=== PATIENT | male | born 1955 | race Caucasian/White ===

== ENCOUNTER → 2021-05-30 12:30 | Outpatient (CLI) | payer SELFPAY ==
--- NOTE | 2021-05-30 12:39 | DI.CT.S_ITS ---
PROCEDURE: CT SOFT TISSUE NECK W CON INDICATIONS: LEFT NECK MASS TECHNIQUE: After the administration of intravenous contrast, 3.0 mm axial sections acquired from the sella to the aortic arch. Additional oblique axial 3.0 mm sections acquired through the pharynx. 3 mm thick coronal and sagittal reformats were generated. For radiation dose reduction, the following was used: automated exposure control. COMPARISON: None. FINDINGS: Image quality: Excellent. Lymph nodes: 1.3 centimeter short axis right level 2B lymph node is noted. 1.2 centimeter short axis right level 5A lymph node is noted. Prominent bilateral level 1, level 2, level 3, level 4 and level 5 neck lymph nodes are noted which do not meet pathologic size criteria. Vessels: Visualized vasculature appears patent. Neck spaces: The oropharynx, nasopharynx, and pharynx demonstrate no mucosal lesions. The vocal cords, false vocal cords, pyriform sinuses, epiglottis, vallecula, and tongue base all appear normal. There is a 4.1 x 4.5 x 6.0 centimeter mass in the left lateral neck soft tissues which corresponds to the clinically palpable lesion. The mass has irregular margins and demonstrates partial central necrosis. Glands: The parotid and submandibular glands appear normal. Thyroid gland is within normal limits Miscellaneous: Visualized brain and orbits appear normal. Lung apices appear clear. Superficial soft tissues appear normal. Bones: No suspicious bony lesions. Spine degenerative disc disease and facet arthropathy. Visualized sinuses and mastoids appear unremarkable. IMPRESSION: 1. Large 4.1 x 4.5 x 6.0 centimeter mass in the left neck with imaging characteristics highly suspicious for malignancy including lymphoma or metastatic disease. Lesion could be biopsied under CT or ultrasound guidance. 2. Right level 2 and level 5 lymphadenopathy which could be related to lymphoma or metastatic disease. 3. Multiple prominent bilateral neck lymph nodes which do not meet pathologic size criteria, however based on the large number prominent nodes findings suspicious for either lymphoma or early metastatic disease. 4. No mucosal-based mass. Dictated by: Keysha Raymond MD, PhD on 05/30/2021 at 14:08 Approved by: Keysha Raymond MD, PhD on 05/30/2021 at 14:17
== END ==
PROVIDERS: Referring Provider Family Medicine; Visit Provider Family Medicine
DX: R22.1 Localized swelling, mass and lump, neck (principal); R59.0 Localized enlarged lymph nodes
CPT/HCPCS: 70491

== ENCOUNTER → 2021-07-09 09:27 | Outpatient (CLI) | payer OTHER, MEDICAID, SELFPAY ==
[2021-07-09 10:39] LABS: COVID19 -Nasal RAPID Negative (Negative)
== END ==
PROVIDERS: PCP Family Medicine; Visit Provider Surgery
DX: Z01.812 Encounter for preprocedural laboratory examination (principal); Z20.822 Contact with and (suspected) exposure to COVID-19
CPT/HCPCS: 87635; C9803

== ENCOUNTER 2021-07-10 08:51 | Day surgery (SDC) | payer OTHER, MEDICAID, SELFPAY ==
[2021-07-10] VITALS (7 sets, daily range): BP systolic 107–135; BP diastolic 52–67; PULSE 50–65; RESP 11–18; TEMP 36.2–36.7; O2SAT 94–98; BMI 30.7
--- NOTE | 2021-07-10 | DI.RAD.S_ITS ---
PROCEDURE: XR CHEST 1V INDICATIONS: Postoperative port catheter placement TECHNIQUE: One view of the chest was acquired. COMPARISON: None. FINDINGS: Central venous port catheter in the right chest wall with distal tip terminating in the upper portion of the SVC. IMPRESSION: Right chest wall CBC port catheter terminating in the upper SVC. Dictated by: Raleigh Chaudhry M.D. on 07/10/2021 at 11:44 Approved by: Raleigh Chaudhry M.D. on 07/10/2021 at 11:44
--- NOTE | 2021-07-10 08:56 | PM.HP.1 ---
History of Present Illness History of Present Illness Date Patient Seen: 07/10/21 Time Patient Seen: 08:56 Chief complaint: SDC Narrative: 65-year-old man referred by Port-A-Cath placement. Patient has squamous cell carcinoma of the left neck. Has a 5 cm mass left supraclavicular mass and bilateral neck lymph nodes no evidence of distant metastasis. He is awaiting referral to a head and neck surgical oncologist via [facility], [place] n is to proceed with neoadjuvant chemotherapy. Patient History Medical History Former consumption of alcohol History of needle biopsy (06/18/21) Surgical History History of wisdom tooth extraction Family & Social History Family History Mother Hypertension Tobacco & Substance use: Smoking Status Former smoker alcohol intake former Meds Home Medications and Allergies Home Medications Medication Instructions Recorded Confirmed Type Ca 600 mg-D3 20 mcg-mag oxide 50 1 tab PO DAILY 06/14/21 07/10/21 History qn-Kf-azbagi-manganese-boron tablet (Calcium 600-D3 Plus (mag-zinc)) ascorbic acid (vitamin C) 1,000 mg 3,000 cap PO DAILY 06/14/21 07/10/21 History capsule,extended release cholecalciferol (vitamin D3) 25 25 mcg PO DAILY 06/14/21 07/10/21 History mcg (1,000 unit) tablet (Vitamin D3) multivitamin 1 tab PO DAILY 06/14/21 07/10/21 History Allergies Allergy/AdvReac Type Severity Reaction Status Date / Time No Known Drug Allergies Allergy Verified 06/14/21 15:57 Exam Narrative Exam Narrative: GENERAL: Adult male in no apparent distress HEENT: No scleral icterus Neck-8 cm left supraclavicular mass, minimal right neck lyphadenopathy. CV: Regular rate, no peripheral edema LUNGS: No increased work of breathing. Patient speaks in full sentences without oxygen support. 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 Technical details of the operation were discussed with the patient. Operative risks including bleeding, infection, pneumothorax, mechanical device failure were discussed. His questions have been answered and he is in agreement with this plan. Time Spent With Patient Critical Care time: I spent a total of [] minutes of critical care time on this patient's care today; this time is exclusive of procedural time.
[2021-07-10] MEDS: LACTATED RINGERS 1,000 ML 200 ML IV ×2 (09:28→11:03)
[2021-07-10] MEDS: CEFAZOLIN 2 GM/20 ML SYRINGE IV (10:08)
[2021-07-10] MEDS: HEPARIN 5,000 UNIT, SODIUM CHLORIDE 0.9% 50 ML IV (10:30)
[2021-07-10] MEDS: BUPIVACAINE 0.25% (PF) VIAL 30 ML INJ (10:31)
--- NOTE | 2021-07-10 10:32 | SUR.OPER ---
Supine on padded OR bed, head on gel donut, arms padded and tucked at sides, legs uncrossed, safety belt at thigh, tape over blanket over lower legs . rolled towel placed vertically between shoulder blades, gel pad under heels, pillow under knees.
--- NOTE | 2021-07-10 11:12 | PM.OP.1 ---
Operative Date/Time/Diagnoses Date of procedure: 07/10/21 Time of procedure: 11:13 Pre-op diagnosis: Squamous cell carcinoma neck Post-op diagnosis: same Procedure & Clinicians Procedure: Right Port-A-Cath placement Same procedure as scheduled: Yes Indications: Squamous cell carcinoma neck requiring Port-A-Cath placement Surgeon: Jadiel Weiss Click Yes if Unassisted: Yes Anesthesia Type: General Operative Notes Findings: Tip of catheter within the SVC. Chest x-ray panic Specimen(s): none sent Estimated Blood Loss (mL): 10 Procedure in detail: Patient was brought to the operating room placed supine on table. Bilateral lower extremity compressive devices were applied. General anesthesia was induced and he was intubated with an LMA. He was then prepped and draped in usual sterile fashion. Time-out was performed ensure the correct patient procedure necessary equipment within the operating room. He received 2 g of Ancef prior to incision. The right subclavian was accessed with a finer needle. The guidewire was then threaded through the needle and its placement was confirmed with fluoroscopy. The dilator was then placed over the guidewire. The catheter was then inserted through the sheath. Placement was again confirmed with fluoroscopy. The port was not attached to the catheter however it did not flush or draw well. The catheter was then removed and attempts were made to reaccess the right subclavian vein however this was not successful. Under ultrasound guidance the right internal jugular vein was accessed under direct visualization. The guidewire was then threaded through the needle. Its placement was then confirmed using fluoroscopy. The dilator was then placed over the guidewire. The catheter was then inserted through the sheath. Placement was again confirmed with fluoroscopy. The tunneler device was used to move the catheter from the neck to the chest pocket. The port was attached after it was primed with heparined saline. The port was tested to ensure that it flushed easily and had good blood return. The port was then secured to the underlying fascia using interupted 0 Prolene suture. Hemostasis was achieved. The wound was irrigated with sterile saline. The subcutaneous tissues were reapproximated with the 3 0 Vicryl and then skin closed with 4-0 Monocryl. The skin was sealed with Dermabond. Patient tolerated procedure well. The sponge and instrument count at the end operation was correct. Patient emerged from general anesthesia was extubated and taken to the postoperative care unit in stable condition placement Complications: none Post-operative Condition: stable Disposition: same day surgery
--- NOTE | 2021-07-10 11:20 | SUR.PHASEI ---
Patient to pacu s/p portacath placement to right chest wall; vss; no distress noted; dressing to right chest wall with scant amount of drainage noted; bandaid to right lower neck clean, dry and intact. Denies pain or nausea.
[2021-07-10] MEDS: OXYCODONE/ACETAMINOPHEN 5/325 TABLET 1 TAB PO (11:36)
[2021-07-10] MEDS: ONDANSETRON 4 MG/2 ML INJ IV (11:36)
== END 2021-07-10 12:15 | disposition home or self-care (01) ==
PROVIDERS: PCP Family Medicine; Referring Provider Surgery; Visit Provider Surgery
PROC: (CPT 36561; principal; 2021-07-10 10:00)
DX: C44.42 Squamous cell carcinoma of skin of scalp and neck (principal)
CPT/HCPCS: 36561; 71045; 76000; C1788; J0690; J1100; J1644; J2250; J2405; J2704; J3010

== ENCOUNTER → 2022-01-10 10:46 | Outpatient (CLI) | payer OTHER, MEDICAID, SELFPAY ==
--- NOTE | 2022-01-10 10:48 | DI.CT.S_ITS ---
PROCEDURE: CT SOFT TISSUE NECK W CON INDICATIONS: head and neck SCC TECHNIQUE: After the administration of intravenous contrast, 3.0 mm axial sections acquired from the sella to the aortic arch. Additional oblique axial 3.0 mm sections acquired through the pharynx. 3 mm thick coronal and sagittal reformats were generated. For radiation dose reduction, the following was used: automated exposure control. COMPARISON: [facility], CT, CT SOFT TISSUE NECK WITH CONTRAST, 09/20/2021, 13:17. [place], [place], [place] PET CT FUSION SKULL 2 THIGH, 06/27/2021, 8:25. [facility], CT, CT SOFT TISSUE NECK W CON, 05/30/2021, 13:06. FINDINGS: Image quality: Excellent. Lymph nodes: No enlarged lymph nodes seen throughout the neck. Vessels: Visualized vasculature appears patent. Neck spaces: The oropharynx, nasopharynx, and pharynx demonstrate no mucosal lesions. The vocal cords, false vocal cords, pyriform sinuses, epiglottis, vallecula, and tongue base all appear normal. Large left level 3-4 tata mass which extends into the left superior mediastinum is decreased in size compared to September 20, 2021. Mass measures approximately 4.8 by 5.9 by 4.1 centimeters in the current study. Glands: The parotid and submandibular glands appear normal. Thyroid gland is within normal limits. Miscellaneous: Visualized brain and orbits appear normal. Lung apices appear clear. Superficial soft tissues appear normal. Right chest wall Port-A-Cath. Bones: No suspicious bony lesions. Spine degenerative disc disease and facet arthropathy. Mild mucosal thickening in the floor of the right maxillary sinus. The mastoids appear unremarkable. IMPRESSION: 1. Large left anterior-inferior tata neck mass is decreased in size compared to September 20, 2021 compatible with response to therapy. 2.Bilateral level 2 and right level 5 pathologic sized lymph nodes and numerous prominent bilateral neck lymph nodes are decreased in size compared to September 20, 2021. No lymphadenopathy based on size criteria identified in the current study. Dictated by: Keysha Raymond MD, PhD on 01/10/2022 at 10:34 Approved by: Keysha Raymond MD, PhD on 01/10/2022 at 10:44
== END ==
PROVIDERS: PCP Physician Assistant; Referring Provider Internal Medicine Hematology & Oncology; Visit Provider Internal Medicine Hematology & Oncology
DX: C80.1 Malignant (primary) neoplasm, unspecified (principal); C79.89 Secondary malignant neoplasm of other specified sites; R59.0 Localized enlarged lymph nodes
CPT/HCPCS: 70491; Q9967

== ENCOUNTER → 2022-07-08 11:54 | Outpatient (CLI) | payer OTHER, MEDICAID, SELFPAY ==
--- NOTE | 2022-07-08 11:54 | DI.CT.S_ITS ---
PROCEDURE: CT SOFT TISSUE NECK W CON INDICATIONS: metastatic head and neck squamous cell cancer TECHNIQUE: After the administration of intravenous contrast, 3.0 mm axial sections acquired from the sella to the aortic arch. Additional oblique axial 3.0 mm sections acquired through the pharynx. 3 mm thick coronal and sagittal reformats were generated. For radiation dose reduction, the following was used: automated exposure control. COMPARISON: [facility], [place], [place] CT FUSION SKULL 2 THIGH, 03/20/2022, 8:13. [facility], CT, CT SOFT TISSUE NECK W CON, 01/10/2022, 10:54. FINDINGS: Image quality: Excellent. Lymph nodes: Apparent necrotic lymph nodes can be seen on the left inferiorly and laterally within the supraclavicular region, measuring 2.7 x 2.2 cm and 2 x 2 cm. These are overall improved compared to the 01/10/2022 examination. Poorly in prominent lymph nodes are seen elsewhere within the neck, which are overall also mildly improved compared to the prior. Vessels: Visualized vasculature appears patent. Neck spaces: Generalized fatty stranding can be seen within the subcutaneous tissues of the neck. There is a low-density, poorly enhancing soft tissue nodular focus seen within the left supraglottic region that measures 2.5 x 1.8 cm in greatest axial dimension, with mild mass effect upon the epiglottis. Glands: The parotid and submandibular glands appear normal. Thyroid gland demonstrates no significant abnormality. Miscellaneous: Visualized brain and orbits appear normal. Lung apices appear clear. Superficial soft tissues appear normal. There is partial visualization of a right-sided chest port. Bones: No suspicious bony lesions. Visualized sinuses and mastoids appear unremarkable. IMPRESSION: Abnormal soft tissue fullness seen within the left supraglottic region, with mass effect upon the epiglottis. Please correlate with direct visualization via laryngoscopy. Continued improvement of the abnormal lymph nodes seen within the left supraclavicular region. Borderline prominent lymph nodes are seen elsewhere within the neck, which are also mildly improved compared to the prior. Fatty stranding can be seen within the subcutaneous tissues of the neck, which is consistent prior radiation treatment. Additional findings: Right-sided chest port Dictated by: Adriel Orellana M.D. on 07/08/2022 at 13:35 Approved by: Adriel Orellana M.D. on 07/08/2022 at 13:42
--- NOTE | 2022-07-08 11:54 | DI.CT.S_ITS ---
PROCEDURE: CT CHEST W CON INDICATIONS: metastatic head and neck squamous cell cancer TECHNIQUE: After the administration of intravenous contrast, 5 mm thick sections acquired from the pulmonary apices to the posterior costophrenic angles. 1 mm axial lung, 5 mm thick coronal and sagittal reformats and 7 mm axial MIP were acquired. For radiation dose reduction, the following was used: automated exposure control, adjustment of mA and/or kV according to patient size. COMPARISON: [facility], [place], [place] FUSION SKULL 2 THIGH, 03/20/2022, 8:13. [facility], CT, CT SOFT TISSUE NECK W CON, 07/08/2022, 12:06. FINDINGS: Image quality: Excellent. Lungs and pleura: Significant interval increase in size of a posterior inferior right upper lobe pulmonary nodule (previously described as right lower lobe), previously measuring 8 mm, and now measuring 14 mm. Reference previous image 138/3 of the PET-CT and current image 174/3. Interval development of an ill-defined process more superiorly and anteriorly in the right upper lobe, which includes ground-glass opacity and ill-defined reticular nodularity, which appears to be infectious or inflammatory in nature. Additionally, in the lingular portion of the left upper lobe, there is a developing somewhat ovoid nodular density, which was present on the previous PET/CT, and is now significantly larger. It measures approximately 9 x 15 mm. On the previous study, it measured approximately 8 x 8 mm. It may also represent an area of progressive metastatic disease. No pleural effusions or pneumothorax. Central and peripheral airways are patent and normal in caliber. Mediastinum: Heart size is normal. No pericardial effusion. No mediastinal or hilar adenopathy by size criteria. Thoracic aorta and central pulmonary arteries are normal in size. Esophagus is normal in caliber. No hiatal hernia. Bones and chest wall: No Severe osteoporosis with innumerable mild thoracic compressions. There is significant supraclavicular adenopathy and cervical adenopathy on the left. Please refer to a separate report from today's neck CT. Thyroid gland is grossly unremarkable . Abdomen: Visualized upper abdominal solid organs appear normal. Upper abdominal bowel loops are normal in caliber. IMPRESSION: 1. Cervical metastatic disease and supraclavicular metastatic disease is described in a separate report. 2. Definite interval progression of metastatic disease in the chest. A posterior inferior right lower lobe pulmonary nodule has significantly increased in size, as has a ovoid density in the lingula of the left upper lobe. 3. There is also a process in the right upper lobe which has an appearance suggesting infectious or inflammatory etiology. 4. There are numerous thoracic compressions. Consider thoracic spine MRI with without contrast for further evaluation. Dictated by: Carlos Serrano M.D. on 07/08/2022 at 18:23 Approved by: Carlos Serrano M.D. on 07/08/2022 at 18:39
== END ==
PROVIDERS: PCP Physician Assistant; Referring Provider Internal Medicine Hematology & Oncology; Visit Provider Internal Medicine Hematology & Oncology
DX: C79.89 Secondary malignant neoplasm of other specified sites (principal); C78.00 Secondary malignant neoplasm of unspecified lung; C80.1 Malignant (primary) neoplasm, unspecified; R59.0 Localized enlarged lymph nodes
CPT/HCPCS: 70491; 71260; Q9967

== ENCOUNTER → 2022-07-25 15:05 | Outpatient (CLI) | payer OTHER, MEDICAID, SELFPAY | PROVIDERS: PCP Physician Assistant; Visit Provider Nurse Practitioner Family | DX: R22.1 Localized swelling, mass and lump, neck (principal) | CPT/HCPCS: 87070; 87075; 87077; 87147; 87186; 87205 ==

== ENCOUNTER → 2022-09-18 14:30 | Outpatient (CLI) | payer MEDICARE, MEDICAID, SELFPAY | PROVIDERS: PCP Physician Assistant; Referring Provider Internal Medicine Hematology & Oncology; Visit Provider Surgery | DX: L59.8 Other specified disorders of the skin and subcutaneous tissue related to radiation (principal); S11.90XA Unspecified open wound of unspecified part of neck, initial encounter; T81.83XA Persistent postprocedural fistula, initial encounter; C76.0 Malignant neoplasm of head, face and neck | CPT/HCPCS: 99203; 99213 ==

== ENCOUNTER → 2022-09-25 11:28 | Outpatient (CLI) | payer MEDICARE, MEDICAID, SELFPAY | PROVIDERS: PCP Physician Assistant; Referring Provider Internal Medicine Hematology & Oncology; Visit Provider Nurse Practitioner Family | DX: L59.8 Other specified disorders of the skin and subcutaneous tissue related to radiation (principal); S11.80XA Unspecified open wound of other specified part of neck, initial encounter | CPT/HCPCS: 99212 ==

== ENCOUNTER → 2022-10-11 10:06 | Outpatient (CLI) | payer MEDICARE, MEDICAID, SELFPAY ==
--- NOTE | 2022-10-11 10:08 | DI.CT.S_ITS ---
PROCEDURE: CT SOFT TISSUE NECK W CON INDICATIONS: head and neck cancer [facility] lung mets TECHNIQUE: After the administration of intravenous contrast, 3.0 mm axial sections acquired from the sella to the aortic arch. Additional oblique axial 3.0 mm sections acquired through the pharynx. 3 mm thick coronal and sagittal reformats were generated. For radiation dose reduction, the following was used: automated exposure control. COMPARISON: [place], [place] CT FUSION SKULL 2 THIGH, 03/20/2022, 8:13. [facility], CT, CT SOFT TISSUE NECK W CON, 01/10/2022, 10:54. [facility], CT, CT SOFT TISSUE NECK WITH CONTRAST, 09/20/2021, 13:17. [place] CT FUSION SKULL 2 THIGH, 06/27/2021, 8:25. [facility], CT, CT SOFT TISSUE NECK W CON, 05/30/2021, 13:06. [facility], CT, CT SOFT TISSUE NECK W CON, 07/08/2022, 12:06. FINDINGS: Image quality: Artifact is present within the exam limiting areas of fine detail evaluation. Lymph nodes: Within the left lateral lower neck extending to the supraclavicular region, there is previously identified heterogeneously enhancing lymph nodes appearing necrotic. On current exam there is an overall focus of diffuse thickening measuring approximately 6.5 x 5.2 cm on series 2, image 43. There is a central area of air as well as surrounding low attenuation measures approximately 1.4 x 2.2 cm. . The overall confluent size is similar to prior exam, however noting a more central cavitary appearance. Vessels: Visualized vasculature appears patent. Neck spaces: Generalized fat stranding in the subcutaneous tissues of the neck remains present. The previously noted low-density nodular soft tissue focus in the left supraglottic region remains present although decreased in size, now measuring approximately 1.5 x 1.1 cm compared to 2.5 x 1.8 cm. There is reduced although residual mass effect on the epiglottis. Glands: The parotid and submandibular glands appear normal. Thyroid gland is unremarkable. Miscellaneous: Visualized brain and orbits appear normal. Lung apices appear clear. Superficial soft tissues appear normal. Bones: No suspicious bony lesions. Visualized sinuses and mastoids appear unremarkable. IMPRESSION: Persistent although decreased size left supraglottic mass. Similar confluent soft tissue thickening within the left inferior neck. However, there is a more focal central focus of air and fluid. This may represent recent surgical intervention. Other etiology such as progressive necrosis should be considered. Less likely given lack of visualization, fistulous track should be considered if clinically appropriate symptoms. Dictated by: Tamika Toribio M.D. on 10/11/2022 at 14:38 Approved by: Tamika Toribio M.D. on 10/11/2022 at 14:50
--- NOTE | 2022-10-11 10:08 | DI.CT.S_ITS ---
PROCEDURE: CT CHEST W CON INDICATIONS: head and neck cancer [facility] lung mets TECHNIQUE: After the administration of intravenous contrast, 5 mm thick sections acquired from the pulmonary apices to the posterior costophrenic angles. 1 mm axial lung, 5 mm thick coronal and sagittal reformats and 7 mm axial MIP were acquired. For radiation dose reduction, the following was used: automated exposure control, adjustment of mA and/or kV according to patient size. COMPARISON: [facility], CT, CT CHEST W CON, 07/08/2022, 12:06. FINDINGS: Image quality: Excellent. Lungs and pleura: When compared with the study dated July 08, 2022, a right upper lobe and a lingular pulmonary nodule have decreased in size. The right upper lobe nodule now measures 0.8 cm in diameter and previously measured 1.3 cm in diameter. The lingular nodule now measures 0.5 x 1.0 cm and previously measured 0.8 x 1.5 cm in the axial plane. Ground-glass radiopacities within the anterior aspect of the right upper lobe are unchanged from the prior study in suggest postinflammatory residua. New consolidative radiopacities are present within the posterior aspect of the left lower lobe. No pleural effusion or pneumothorax. Mediastinum: Heart size is normal. No pericardial effusion. No mediastinal or hilar adenopathy by size criteria. Thoracic aorta and central pulmonary arteries are normal in size. Esophagus is normal in caliber. No hiatal hernia. Bones and chest wall: No suspicious bony lesions. No vertebral body compression fractures. No axillary or supraclavicular adenopathy by size criteria. Thyroid gland is unremarkable . Abdomen: Visualized upper abdominal solid organs appear normal. Upper abdominal bowel loops are normal in caliber. IMPRESSION: 1. Decreased size of bilateral pulmonary nodules when compared with the study dated July 08, 2022 suggesting response to therapy. 2. New consolidative radiopacities at the left lung base. The chronicity and appearance of this finding suggest aspiration or infection; however underlying neoplasm or pulmonary metastasis cannot be excluded. Short interval follow-up to resolution is recommended. Dictated by: Bonny Aparicio M.D. on 10/11/2022 at 12:08 Approved by: Bonny Aparicio M.D. on 10/11/2022 at 12:13
== END ==
PROVIDERS: PCP Physician Assistant; Referring Provider Internal Medicine Hematology & Oncology; Visit Provider Internal Medicine Hematology & Oncology
DX: C79.89 Secondary malignant neoplasm of other specified sites (principal); C80.1 Malignant (primary) neoplasm, unspecified; C78.00 Secondary malignant neoplasm of unspecified lung
CPT/HCPCS: 70491; 71260; Q9967

== ENCOUNTER 2022-10-24 10:13 | Emergency (ER) | payer MEDICARE, MEDICAID, SELFPAY ==
[2022-10-24 10:15] VITALS: BP 117/63; PULSE 88; RESP 17; TEMP 37.1; O2SAT 97
--- NOTE | 2022-10-24 10:20 | ED.ALCOHOL ---
HPI - Alcohol <MIKE Bolton - Last Filed: 10/24/22 10:28> General Chief Complaint: Toxicology Problem Stated Complaint: drinking alcohol x6days; feeling poorly Time Seen by Provider: 10/24/22 10:20 Source: patient Mode of arrival: Wheelchair History of Present Illness HPI narrative: This is a 67-year-old gentleman with history cancer with a wound on his left neck from a biopsy, alcoholism, denies history of alcohol withdrawal seizures but heavily over the last 6 days, his last drink was a few hours ago, it was. He was recommended by to come in for evaluation. He endorses having chills but denies fever, denies upper respiratory infection. Amount of alcohol consumed: States his last drink was vodka, has over the last 6 days. Needs his wound on his left neck evaluated and the dressing changed Related Data Home Medications Medication Instructions Recorded Confirmed Ca 600 mg-D3 20 mcg-mag oxide 50 1 tab PO DAILY 06/14/21 09/12/22 ci-Nf-nxlele-manganese-boron tablet (Calcium 600-D3 Plus (mag-zinc)) ascorbic acid (vitamin C) 1,000 mg 3,000 cap PO DAILY 06/14/21 09/12/22 capsule,extended release cholecalciferol (vitamin D3) 25 25 mcg PO DAILY 06/14/21 09/12/22 mcg (1,000 unit) tablet (Vitamin D3) multivitamin 1 tab PO DAILY 06/14/21 09/12/22 Previous Rx's Medication Instructions Recorded acetaminophen 325 mg capsule 650 mg PO QID PRN pain #60 caps 07/10/21 (Tylenol) oxycodone 10 mg tablet 10 mg PO Q4H PRN Pain (Scale Score 08/06/22 1-3) #30 tabs morphine 15 mg tablet,extended 15 mg PO Q12H cancer pain #60 tabs 09/30/22 release oxycodone 10 mg tablet 10 mg PO Q4H PRN cancer related 10/21/22 pain. #120 tabs chlordiazepoxide HCl 25 mg capsule See Rx Instructions .Route 10/24/22 .COMPLEX PRN alcohol withdrawal #32 caps Allergies Allergy/AdvReac Type Severity Reaction Status Date / Time No Known Drug Allergies Allergy Verified 10/24/22 10:15 <Patel Colon DO - Last Filed: 10/25/22 07:10> History of Present Illness HPI narrative: This is a 67-year-old gentleman with history cancer with a wound on his left neck from a biopsy, alcoholism, denies history of alcohol withdrawal seizures but heavily over the last 6 days, his last drink was a few hours ago, it was. He was recommended by to come in for evaluation. He endorses having chills but denies fever, denies upper respiratory infection. He denies headaches, blurry vision, dizziness, weakness or lightheadedness. He does feel a bit anxious but denies any auditory or visual hallucinations. He is no chest pain or shortness of breath and denies any abdominal pain <Patel Colon DO - Last Filed: 10/25/22 07:10> Review of Systems Narrative: GENERAL: See HPI HEENT: Denies sinus pain, ear pain, sore throat, difficulty swallowing, dizziness. RESPIRATORY: Denies dyspnea, cough, wheezing, hemoptysis, sputum. CARDIOVASCULAR: Denies chest pain, palpitations, orthopnea, edema, GASTROINTESTINAL: Denies nausea, vomiting, abdominal pain, diarrhea, constipation, melena. : Denies dysuria, frequency, incontinence, hematuria, urinary retention. MUSCULOSKELETAL: denies weakness, joint pain, or bony pain SKIN: Denies rash, skin lesions, or other NEUROLOGIC: Denies weakness, headache, numbness, change in speech, confusion, seizures, incoordination. PSYCHIATRIC: No concerning psychosocial issues. 12 point review of systems is negative except for those stated above Patient History <MIKE Bolton - Last Filed: 10/24/22 10:28> Medical History Former consumption of alcohol History of needle biopsy (06/18/21) Surgical History History of wisdom tooth extraction Family History Mother Hypertension Social History Smoking Status: Former smoker alcohol intake: former substance use type: does not use Smoking Status: Former smoker Substance Use Type: does not use Exam <MIKE Bolton Last Filed: 10/24/22 10:28> Initial Vital Signs Initial Vital Signs: Vital Signs Temperature 98.7 F 10/24/22 10:15 Pulse Rate 88 10/24/22 10:15 Respiratory Rate 17 10/24/22 10:15 Blood Pressure 117/63 10/24/22 10:15 Pulse Oximetry 97 10/24/22 10:15 Oxygen Delivery Method Room Air 10/24/22 10:15 <Patel Colon DO - Last Filed: 10/25/22 07:10> Narrative Exam Narrative: GENERAL: 67] year old patient appears stated age. Well-developed patient, in mild distress. HEAD: Atraumatic. Normocephalic. EYES: Pupils equal round and reactive. Extraocular motions intact. No scleral icterus. No injection or drainage. ENT: Nose without bleeding, purulent drainage. Throat without erythema, tonsillar hypertrophy or exudate. Airway patent. NECK: Trachea midline. Non tender CARDIOVASCULAR: Regular rate and rhythm without murmurs, gallops, or rubs. RESPIRATORY: Clear to auscultation. Breath sounds equal bilaterally. No wheezes, rales, or rhonchi. GASTROINTESTINAL: Abdomen soft, non-tender, nondistended. EXTREMITIES: No edema or joint tenderness. BACK: Nontender without deformity or crepitance. No flank tenderness. NEURO: AOx3. 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 No rash or erythema of visible areas Initial Vital Signs Initial Vital Signs: Vital Signs Temperature 98.7 F 10/24/22 10:15 Pulse Rate 88 10/24/22 10:15 Respiratory Rate 17 10/24/22 10:15 Blood Pressure 117/63 10/24/22 10:15 Pulse Oximetry 97 10/24/22 10:15 Oxygen Delivery Method Room Air 10/24/22 10:15 Course <MIKE Bolton - Last Filed: 10/24/22 10:28> Orders Ordered: Discontinued Medications Sodium Chloride (Normal Saline 0.9%) 1,000 mls @ 1,000 mls/hr IV BOLUS ONE Stop: 10/24/22 11:21 Last Infusion: 10/24/22 11:40 Dose: 0 mls/hr Documented By: Admin: 10/24/22 10:48 Dose: 1,000 mls/hr Documented By: AT Thiamine HCl 100 mg/ Sodium (Chloride) 101 mls @ 404 mls/hr IV NOW ONE Stop: 10/24/22 10:23 Last Infusion: 10/24/22 11:26 Dose: 0 mls/hr Documented By: Admin: 10/24/22 10:49 Dose: 404 mls/hr Documented By: AT Ondansetron HCl (Ondansetron 4 Mg/2 Ml Inj) 4 mg IV NOW ONE Stop: 10/24/22 10:23 Last Admin: 10/24/22 10:48 Dose: 4 mg Documented By: AT Vital Signs Vital signs: Vital Signs - 8 hr 10/24/22 10:15 10/24/22 10:26 10/24/22 10:30 Temperature 98.7 F Pulse Rate 88 79 Respiratory Rate 17 17 Blood Pressure 117/63 126/65 Pulse Oximetry 97 98 Oxygen Delivery Method Room Air 10/24/22 10:30 10/24/22 11:00 10/24/22 11:00 Temperature Pulse Rate 76 72 Respiratory Rate 15 19 Blood Pressure 128/64 Pulse Oximetry 99 Oxygen Delivery Method Room Air <Patel Colon, - Last Filed: 10/25/22 07:10> Course Course Narrative: [facility] for Alcohol Withdrawal from [employer] on 10/24/2022 All calculations should be rechecked by clinician prior to use RESULT SUMMARY: 2 points Patients with scores <= typically do not require medication for withdrawal. INPUTS: Nausea/vomiting ?> 0 = No nausea and no vomiting Tremor ?> 0 = No tremor Paroxysmal sweats ?> 0 = No sweat visible Anxiety ?> 1 = Mildly anxious Agitation ?> 1 = Somewhat more activity than normal activty Tactile disturbances ?> 0 = None Auditory disturbances ?> 0 = Not present Visual disturbances ?> 0 = Not present Headache/fullness in head ?> 0 = Not Present Orientation/clouding of sensorium ?> 0 = Oriented, can do serial additions Orders Ordered: Discontinued Medications Sodium Chloride (Normal Saline 0.9%) 1,000 mls @ 1,000 mls/hr IV BOLUS ONE Stop: 10/24/22 11:21 Last Infusion: 10/24/22 11:40 Dose: 0 mls/hr Documented By: Admin: 10/24/22 10:48 Dose: 1,000 mls/hr Documented By: AT Thiamine HCl 100 mg/ Sodium (Chloride) 101 mls @ 404 mls/hr IV NOW ONE Stop: 10/24/22 10:23 Last Infusion: 10/24/22 11:26 Dose: 0 mls/hr Documented By: Admin: 10/24/22 10:49 Dose: 404 mls/hr Documented By: AT Ondansetron HCl (Ondansetron 4 Mg/2 Ml Inj) 4 mg IV NOW ONE Stop: 10/24/22 10:23 Last Admin: 10/24/22 10:48 Dose: 4 mg Documented By: AT Vital Signs Vital signs: Vital Signs - 8 hr 10/24/22 10:15 10/24/22 10:26 10/24/22 10:30 Temperature 98.7 F Pulse Rate 88 79 Respiratory Rate 17 17 Blood Pressure 117/63 126/65 Pulse Oximetry 97 98 Oxygen Delivery Method Room Air 10/24/22 10:30 10/24/22 11:00 10/24/22 11:00 Temperature Pulse Rate 76 72 Respiratory Rate 15 19 Blood Pressure 128/64 Pulse Oximetry 99 Oxygen Delivery Method Room Air MDM - Alcohol <Padma Yusuf, WH[employer] BUFFER - Last Filed: 10/24/22 10:28> Lab Data 10/24/22 10:25 10/24/22 10:25 Labs: Lab Results 10/24/22 10/24/22 10/24/22 Range/Units 10:25 10:25 10:25 WBC 8.1 (4.5-11.0) X10^3/uL RBC 4.84 (4.5-5.9) X10^6/uL Hgb 13.4 L (13.5-17.5) g/dL Hct 39.4 L (41-53) % MCV 81.4 (80-100) fL MCH 27.7 (26-34) PG MCHC 34.0 (30-36) % RDW 14.5 (11.6-14.8) % Plt Count 360 (150-400) X10^3/uL Neut % (Auto) 82.5 H (50-75) % Lymph % (Auto) 7.9 L (25-40) % Stafford % (Auto) 7.0 (3-14) % Eos % (Auto) 0.5 L (2-4) % Baso % (Auto) 2.1 H (0-2) % Neut # (Auto) 6700 (8973-3201) /uL Lymph # (Auto) 600 L (4638-2150) /uL Stafford # (Auto) 600 (0-900) /uL Eos # (Auto) 0 (0-450) /uL Baso # (Auto) 200 H (0-100) /uL Sodium 132 L (137-145) mmol/L Potassium 4.1 (3.4-5.1) mmol/L Chloride 93 L (98-107) mmol/L Carbon Dioxide 22 (22-32) mmol/L BUN 12 (9-20) mg/dL Creatinine 0.45 L (0.66-1.25) mg/dL Estimated GFR > 60 (>60) mL/min BUN/Creatinine Ratio 26.7 H (6-22) Glucose 62 L (80-110) mg/dL Calcium 8.8 (8.4-10.2) mg/dL Magnesium 2.0 (1.6-2.3) mg/dL Total Bilirubin 0.5 (0.2-1.3) mg/dL AST 70 H (17-59) IU/L ALT 42 (<50) IU/L Alkaline Phosphatase 108 (38-126) U/L Ammonia < 9 L (9-30) umol/L Total Protein 8.1 (6.3-8.2) g/dL Albumin 4.4 (3.5-5.0) g/dL Globulin 3.7 (1.7-4.1) g/dL Albumin/Globulin Ratio 1.2 (1.0-2.8) Lipase 46 (23-300) U/L Procalcitonin 0.06 (<0.5) ng/mL <Patel Colon, DO - Last Filed: 10/25/22 07:10> Lab Data Labs: Lab Results 10/24/22 10/24/22 10/24/22 Range/Units 10:25 10:25 10:25 WBC 8.1 (4.5-11.0) X10^3/uL RBC 4.84 (4.5-5.9) X10^6/uL Hgb 13.4 L (13.5-17.5) g/dL Hct 39.4 L (41-53) % MCV 81.4 (80-100) fL MCH 27.7 (26-34) PG MCHC 34.0 (30-36) % RDW 14.5 (11.6-14.8) % Plt Count 360 (150-400) X10^3/uL Neut % (Auto) 82.5 H (50-75) % Lymph % (Auto) 7.9 L (25-40) % Stafford % (Auto) 7.0 (3-14) % Eos % (Auto) 0.5 L (2-4) % Baso % (Auto) 2.1 H (0-2) % Neut # (Auto) 6700 (6690-3051) /uL Lymph # (Auto) 600 L (3572-4466) /uL Stafford # (Auto) 600 (0-900) /uL Eos # (Auto) 0 (0-450) /uL Baso # (Auto) 200 H (0-100) /uL Sodium 132 L (137-145) mmol/L Potassium 4.1 (3.4-5.1) mmol/L Chloride 93 L (98-107) mmol/L Carbon Dioxide 22 (22-32) mmol/L BUN 12 (9-20) mg/dL Creatinine 0.45 L (0.66-1.25) mg/dL Estimated GFR > 60 (>60) mL/min BUN/Creatinine Ratio 26.7 H (6-22) Glucose 62 L (80-110) mg/dL Calcium 8.8 (8.4-10.2) mg/dL Magnesium 2.0 (1.6-2.3) mg/dL Total Bilirubin 0.5 (0.2-1.3) mg/dL AST 70 H (17-59) IU/L ALT 42 (<50) IU/L Alkaline Phosphatase 108 (38-126) U/L Ammonia < 9 L (9-30) umol/L Total Protein 8.1 (6.3-8.2) g/dL Albumin 4.4 (3.5-5.0) g/dL Globulin 3.7 (1.7-4.1) g/dL Albumin/Globulin Ratio 1.2 (1.0-2.8) Lipase 46 (23-300) U/L Procalcitonin 0.06 (<0.5) ng/mL MDM Narrative Medical decision making narrative: Alcohol intoxication versus withdrawal versus other year old patient presents with concerns about possible alcohol withdrawal Multiple etiologies for patient's symptoms considered including, but not limited to: [Alcohol withdrawal versus intoxication versus other] Prior Charts reviewed in our EMR Primary Historian: patient Labs reviewed and interpreted by myself: Imaging reviewed: CXR without acute change Patient's symptoms improved over duration of stay with above-stated therapies. He has an extremely low CIWA of 2, is unlikely to develop withdrawal type symptoms with such a short course but we did discuss the potential and will send a prescription to his pharmacy of choice nonetheless. Findings and discharge diagnosis discussed with patient/family followed by verbalization of understanding Return precautions discussed with patient/family whom verbalize understanding of diagnosis and plan Discharge Plan Departure Patient Disposition: Home Clinical Impression: Alcohol abuse Instructions: DI for Alcohol Use Disorder Activity Restrictions/Additional Instructions: *You have been diagnosed with [alcohol abuse] *What to do: *Please continue to take your regular medications as directed. [ x] New medication prescriptions sent to your pharmacy: [[facility] ] [ ] New medication written as a paper prescription [ ] No new medications given *Please follow up with your primary care provider in 2-3 days, call for an appointment. Let them know you were seen in the Emergency Department and that we ask that you be seen in follow up. We will electronically transmit a record of today's note if your PCP is in our system *If you do not have a primary care provider please contact the [facility] Resource line at [phone]. They will ask some questions about your medical history and help get you set up with a doctor in the community. *Return to Emergency Department if you should have any new, worsening or concerning symptoms, such as [fever greater than 101 F, shaking chills, worsening pain, persistent vomiting or other bothersome symptoms] Prescriptions: New chlordiazepoxide HCl 25 mg capsule See Rx Instructions .ROUTE .COMPLEX PRN (Reason: alcohol withdrawal) Qty: 32 0RF Rx Instructions: Day 1: 50mg POq4 Day 2: 50mg POq6 Day 3: 50mg POq8 Day 4: 50mg POq12 Day 5: 50mg POqhs #32 No Action acetaminophen [Tylenol] 325 mg capsule 650 mg PO QID PRN (Reason: pain) Qty: 60 0RF multivitamin Tablet 1 tab PO DAILY ascorbic acid (vitamin C) 1,000 mg Capsule, Extended Release 3,000 cap PO DAILY cholecalciferol (vitamin D3) [Vitamin D3] 25 mcg (1,000 unit) Tablet 25 mcg PO DAILY Ca-D3-mag pt-kiza-yrf-curt-bor [Calcium 600-D3 Plus (mag-zinc)] 600 mg calcium- 20 mcg-50 mg Tablet 1 tab PO DAILY oxycodone 10 mg Tablet 10 mg PO Q4H PRN (Reason: Pain (Scale Score 1-3)) Qty: 30 0RF morphine 15 mg Tablet Extended Release 15 mg PO Q12H Qty: 60 0RF oxycodone 10 mg Tablet 10 mg PO Q4H PRN (Reason: cancer related pain.) Qty: 120 0RF Referrals: Lisbet Medina PA-C [Primary Care Provider] - Stand Alone Forms: Patient Portal/API
--- NOTE | 2022-10-24 10:22 | DI.RAD.S_ITS ---
PROCEDURE: XR CHEST 1V INDICATIONS: alcohol withdrawal, feeling TECHNIQUE: One view of the chest was acquired. COMPARISON: [facility], CT, CT CHEST W CON, 07/08/2022, 12:06. is likely secondary [facility], CT, CT CHEST W . CON, 10/11/2022, 10:40[facility], CR, XR CHEST 1V, 07/10/2021, 11:18. FINDINGS: Surgical changes and devices: There is a Port-A-Cath on the right with the tip projecting to the area of SVC. Lungs and pleura: Left hemidiaphragm elevation. Left basilar infiltrate or atelectasis. No pleural effusions or pneumothorax. Mediastinum: Prominent right hilum secondary to rotation. Heart size is normal. Bones and chest wall: No suspicious bony lesions. Overlying soft tissues appear unremarkable. IMPRESSION: 1. Left hemidiaphragm elevation with left basilar infiltrate or atelectasis. Dictated by: Amanda Moses M.D. on 10/24/2022 at 11:07 Approved by: Amanda Moses M.D. on 10/24/2022 at 11:09
[2022-10-24 10:26] VITALS: PULSE 79; RESP 17; O2SAT 98
[2022-10-24 10:30] VITALS: BP 126/65; PULSE 76; RESP 15; O2SAT 99
[2022-10-24] MEDS: SODIUM CHLORIDE 0.9% 1,000 ML 1000 ML IV (10:48)
[2022-10-24] MEDS: ONDANSETRON 4 MG/2 ML INJ IV (10:48)
[2022-10-24] MEDS: THIAMINE 100 MG in SODIUM CHLORIDE 0.9% 100 ML 404 MG IV (10:49)
[2022-10-24 10:50] LABS: Add Manual Diff / Slide Review NO; Basophils Absolute Auto 200 /uL (0-100); Basophils Percent Auto 2.1 % (0-2); Eosinophils Absolute Auto 0 /uL (0-450); Eosinophils Percent Auto 0.5 % (2-4); Hematocrit 39.4 % (41-53); Hemoglobin 13.4 g/dL (13.5-17.5); Lymphocytes Absolute Auto 600 /uL (1100-4500); Lymphocytes Percent Auto 7.9 % (25-40); Mean Corpuscular Hemoglobin 27.7 PG (26-34); Mean Corpuscular Volume 81.4 fL (80-100); Monocytes Absolute Auto 600 /uL (0-900); Neutrophils Absolute Auto 6700 /uL (1500-7000); Neutrophils Percent Auto 82.5 % (50-75); Platelet Count 360 X10^3/uL (150-400); Red Blood Cell Count 4.84 X10^6/uL (4.5-5.9); Red Cell Distribution Width 14.5 % (11.6-14.8); White Blood Cell Count 8.1 X10^3/uL (4.5-11.0)
[2022-10-24 11:00] VITALS: BP 128/64; PULSE 72; RESP 19
[2022-10-24 11:00] LABS: Alanine Aminotransferase 42 IU/L (<50); Albumin 4.4 g/dL (3.5-5.0); Albumin Globulin Ratio 1.2 (1.0-2.8); Alkaline Phosphatase 108 U/L (38-126); Aspartate Aminotransferase 70 IU/L (17-59); BUN Creatinine Ratio 26.7 (6-22); Bilirubin Total 0.5 mg/dL (0.2-1.3); Blood Urea Nitrogen 12 mg/dL (9-20); Calcium 8.8 mg/dL (8.4-10.2); Carbon Dioxide 22 mmol/L (22-32); Chloride 93 mmol/L (98-107); Estimated Glomerular Filt Rate > 60 mL/min (>60); Globulin 3.7 g/dL (1.7-4.1); Glucose 62 mg/dL (80-110); HEMOLYSIS < 15 (0-50); Lipase 46 U/L (23-300); Potassium 4.1 mmol/L (3.4-5.1); Sodium 132 mmol/L (137-145); Total Protein 8.1 g/dL (6.3-8.2)
[2022-10-24 11:01] LABS: Ammonia (NH3) < 9 umol/L (9-30)
[2022-10-24 11:17] LABS: Procalcitonin 0.06 ng/mL (<0.5)
[2022-10-24 11:30] VITALS: BP 135/65; PULSE 69; RESP 14; O2SAT 97
--- NOTE | 2022-10-24 12:05 | PC.NURSE ---
Patient has chronic oozing left neck wound, pt has not cleaned wound in past 6 days, states he usually tends to it daily. Dressing removed, wound cleaned with chloraprep, gauze and tegaderm applied, educated pt on irritated skin and encouraged to continue his wound care regimen.
== END 2022-10-24 12:05 | disposition home or self-care (01) ==
PROVIDERS: Nurse Practitioner Critical Care Medicine; Emergency Provider Emergency Medicine; PCP Physician Assistant
DX: F10.10 Alcohol abuse, uncomplicated (principal)
CPT/HCPCS: 36415; 71045; 80053; 82140; 83690; 83735; 84145; 85025; 93005; 93010; 96365; 96375; 99284; J2405

== ENCOUNTER → 2022-11-06 09:21 | Outpatient (CLI) | payer MEDICARE, MEDICAID, SELFPAY | PROVIDERS: PCP Physician Assistant; Referring Provider Internal Medicine Hematology & Oncology; Visit Provider Surgery | DX: L59.8 Other specified disorders of the skin and subcutaneous tissue related to radiation (principal); S11.80XA Unspecified open wound of other specified part of neck, initial encounter; C76.0 Malignant neoplasm of head, face and neck | CPT/HCPCS: 99212; 99213 ==

== ENCOUNTER → 2022-12-31 11:08 | Outpatient (CLI) | payer MEDICARE, MEDICAID, SELFPAY | PROVIDERS: PCP Physician Assistant; Referring Provider Internal Medicine Hematology & Oncology; Visit Provider Surgery | DX: L59.8 Other specified disorders of the skin and subcutaneous tissue related to radiation (principal); S11.80XA Unspecified open wound of other specified part of neck, initial encounter; T81.83XA Persistent postprocedural fistula, initial encounter; C76.0 Malignant neoplasm of head, face and neck | CPT/HCPCS: 99213 ==

== ENCOUNTER 2024-07-08 18:00 | Emergency (ER) | payer MEDICARE, MEDICAID, SELFPAY ==
[2024-07-08] VITALS (21 sets, daily range): BP systolic 126–173; BP diastolic 65–84; PULSE 72–101; RESP 13–32; TEMP 36.4; O2SAT 86–97; BMI 22.9
--- NOTE | 2024-07-08 18:13 | DI.RAD.S_ITS ---
PROCEDURE: XR CHEST 1V INDICATIONS: weakness TECHNIQUE: One view of the chest was acquired. COMPARISON: [facility], [place], PET NECK TO MID THIGH, 03/25/2024, 9:28. [facility], CR, XR CHEST 1V, 10/24/2022, 10:32. [facility], CR, XR CHEST 1V, 07/10/2021, 11:18. FINDINGS: Patient is rotated to the right. Surgical changes and devices: Right-sided port with the catheter tip at the middle 3rd of the SVC. Lungs and pleura: Left lower lung consolidation. No pleural effusions or pneumothorax. Mediastinum: Mediastinal contours appear normal. Heart size is normal. Bones and chest wall: No suspicious bony lesions. Overlying soft tissues appear unremarkable. IMPRESSION: Left lower lung consolidation. Suspect pneumonia. Recommend follow-up to resolution. Dictated by: Alvaro Moore M.D. on 07/08/2024 at 18:47 Approved by: Alvaro Moore M.D. on 07/08/2024 at 18:48
--- NOTE | 2024-07-08 18:13 | EKG_ITS ---
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
[2024-07-08 19:28] LABS: Creatine Kinase 90 U/L (55-170)
[2024-07-08 19:29] LABS: Lactate (Lactic Acid) 1.4 mmol/L (0.7-2.1)
[2024-07-08 19:40] LABS: Troponin I < 0.012 ng/mL (0.01-0.034)
--- NOTE | 2024-07-08 19:40 | ED_ITS ---
HPI - Weakness General Chief complaint: Weakness Stated complaint: Increased Weakness Time Seen by Provider: 07/08/24 18:12 Source: patient and EMS Mode of arrival: EMS History of Present Illness HPI Narrative: 68-year-old male past medical history of cancer to his neck with wound currently undergoing chemotherapy comes into the ED for multiple complaints, states he has been having increased weakness shortness of breath dizziness nausea vomiting multiple falls over the past few weeks, states that he is currently on an antibiotic for his neck, patient arrived with EMS stating pulse ox was 89% on room air upon arrival patient mid 90s room air patient does has a right upper chest port. Patient states that he is also unable to stand and walk even significant weakness this is what caused him to fall but denies any head strike, states that he is unable to hit his head given the fact that he can not move his neck given the large ulcer/wound to his left neck. States that he is currently on ciprofloxacin started a few days ago. Has been compliant with this. Related Data Home Medications Medication Instructions Recorded Confirmed ascorbic acid (vitamin C) 1,000 mg 3,000 cap PO DAILY 06/14/21 01/02/23 capsule,extended release calcium 600 mg-D3 20 mcg-magnesium 1 tab PO DAILY 06/14/21 01/02/23 50 zm-Cj-fnmkxn-michael-boron tablet (Calcium 600-D3 Plus (mag-zinc)) cholecalciferol (vitamin D3) 25 25 mcg PO DAILY 06/14/21 01/02/23 mcg (1,000 unit) tablet (Vitamin D3) multivitamin 1 tab PO DAILY 06/14/21 01/02/23 Tylenol PM See Rx Instructions .Route .COMPLEX 11/21/22 01/02/23 Previous Rx's Medication Instructions Recorded acetaminophen 325 mg capsule 650 mg (2 x 325 mg) PO QID PRN 07/10/21 (Tylenol) pain #60 caps oxycodone 10 mg tablet 10 mg PO Q4H PRN cancer related 12/19/22 pain. #90 tabs Allergies Allergy/AdvReac Type Severity Reaction Status Date / Time No Known Drug Allergies Allergy Verified 10/24/22 10:15 Review of Systems Review of Systems Narrative: General: Increased generalized weakness, Denies fever, chills, weight loss HEENT: Denies headache, eye drainage, eye irritation, head trauma, sore throat, voice change Cardiovascular: Denies any chest pain, palpitations, shortness of breath, tachycardia Respiratory: Denies any shortness of breath, cough, wheeze, stridor GI/: Denies any abdominal pain, nausea, vomiting, diarrhea, bright red blood per rectum, melanotic stools, urinary frequency, urinary retention, dysuria, hematuria MSK: Denies any joint pain, muscle pains, swelling Skin: Denies any rashes, lesions, discoloration Neuro: Denies any headache, lightheadedness, dizziness, fainting, weakness Psych: Denies SI/HI Patient History Medical History Former consumption of alcohol History of needle biopsy (06/18/21) Surgical History History of wisdom tooth extraction Family History Mother Hypertension Social History Smoking Status: Former smoker alcohol intake: former substance use type: does not use Smoking Status: Former smoker alcohol intake frequency: 3 or more drinks per day Exam Narrative Exam Narrative: General: Cooperative, comfortable, well-developed, not in acute distress HEENT: Normocephalic, atraumatic, PERRLA, normal sclera, eyelids normal, Neck: Patient with 5 x 5 ulcerative lesion noted to the left lateral anterior neck due to known invasive carcinoma purulent discharge noted but no crepitus Chest: Normal to inspection, negative crepitus, no overlying erythema ecchymosis Respiratory: Normal respiratory effort, not in acute respiratory distress, clear to auscultation bilaterally negative cough, wheeze, tachypnea, rhonchi, rales Cardiology: Regular rate rhythm negative gallop, murmur, rubs GI/: Normal to inspection, soft, nonrigid, no tenderness to palpation, exam deferred MSK: Full range of active range of motion of all 4 extremities, atraumatic Skin: No rashes lesions noted Neuro: Patient is able to move all 4 extremities spontaneously however slowed/weekend, patient unable to stand ambulate or sit for due to severe weakness Alert awake oriented x3, moves all 4 extremities spontaneously, cranial nerves intact, able to answer all questions appropriately follows commands appropriately Psych: Cooperative, negative suicidal or homicidal ideations Initial Vital Signs Initial Vital Signs: Vital Signs Pulse Rate 82 07/08/24 18:06 Pulse Oximetry 95 07/08/24 18:06 Course Orders Ordered: ED Orders 07/08/24 18:13 CXR [XR chest 1V] Stat EKG-12 Lead Stat 07/08/24 18:45 Blood Culture Stat Lactate (Lactic Acid) Stat Troponin & CK Cardiac Panel Stat 07/08/24 19:30 Covid-19 + FLU A/B + RSV - PCR Stat Wound Culture and Gram Stain Stat 07/08/24 19:45 CMP [Comprehensive Metabolic Panel] Stat Lipase Stat MAG [Magnesium] Stat NT-proBNP (BNP-Adult 18+) Stat Osmolality, Serum Stat PT [Prothrombin Time INR] Stat PTT Partial Thromboplastin Juan Alberto Stat 07/08/24 20:07 CT head/brain wo con Stat 07/08/24 20:08 CT soft tissue neck w con Stat 07/08/24 20:47 BMP [Basic Metabolic Panel] Stat 07/08/24 22:15 Osmolality Urine Stat Sodium Urine Random Stat Urine Microscopic Stat 07/08/24 22:25 Basic Metabolic Panel Stat 07/09/24 00:48 Basic Metabolic Panel Stat Sodium Chloride (Hypertonic Saline 3%) 100 mls @ 20 mls/hr IV NOW ONE Stop: 07/09/24 03:26 Last Admin: 07/08/24 22:40 Dose: 20 mls/hr Documented By: MARY KAY Discontinued Medications Sodium Chloride (Hypertonic Saline 3%) 50 mls @ 600 mls/hr IV NOW ONE Stop: 07/08/24 20:42 Last Infusion: 07/08/24 21:20 Dose: Infused Documented By: MARY KAY Admin: 07/08/24 20:47 Dose: 600 mls/hr Documented By: MARY KAY Sodium Chloride (Hypertonic Saline 3%) 100 mls @ 30 mls/hr IV NOW ONE Stop: 07/08/24 23:57 Last Infusion: 07/08/24 22:40 Dose: Infused Documented By: MARY KAY Admin: 07/08/24 20:48 Dose: 30 mls/hr Documented By: MARY KAY Vancomycin HCl/Dextrose (Vancomycin) 2,000 mg in 400 mls @ 200 mls/hr IV NOW ONE Stop: 07/09/24 00:18 Last Admin: 07/08/24 23:52 Dose: 200 mls/hr Documented By: MARY KAY Piperacillin Sod/Tazobactam (Sod 4.5 gm/ Sodium Chloride) 100 mls @ 200 mls/hr IV NOW ONE Stop: 07/08/24 22:19 Last Infusion: 07/08/24 23:53 Dose: Infused Documented By: MARY KAY Admin: 07/08/24 23:23 Dose: 200 mls/hr Documented By: MARY KAY Morphine Sulfate (Morphine 4 Mg/Ml Inj) 4 mg IV NOW ONE Stop: 07/08/24 23:42 Last Admin: 07/08/24 23:49 Dose: 4 mg Documented By: MARY KAY Vital Signs Vital signs: Vital Signs - 8 hr 07/08/24 18:06 07/08/24 18:07 07/08/24 18:07 Temperature Pulse Rate 82 78 Respiratory Rate Blood Pressure 173/73 H Pulse Oximetry 95 95 Oxygen Delivery Method 07/08/24 18:14 07/08/24 18:30 07/08/24 18:33 Temperature 97.6 F Pulse Rate 75 75 Respiratory Rate 22 22 Blood Pressure 173/73 H 171/74 H Pulse Oximetry 95 96 Oxygen Delivery Method Room Air 07/08/24 18:33 07/08/24 19:00 07/08/24 19:30 Temperature Pulse Rate 75 75 74 Respiratory Rate 19 17 22 Blood Pressure Pulse Oximetry 97 96 97 Oxygen Delivery Method 07/08/24 20:00 07/08/24 20:44 07/08/24 21:00 Temperature Pulse Rate 75 78 74 Respiratory Rate 21 16 Blood Pressure Pulse Oximetry 97 86 L 97 Oxygen Delivery Method 07/08/24 21:30 07/08/24 21:51 07/08/24 21:51 Temperature Pulse Rate 72 74 Respiratory Rate 13 19 Blood Pressure 126/65 Pulse Oximetry 97 97 Oxygen Delivery Method 07/08/24 22:00 07/08/24 22:01 07/08/24 22:01 Temperature Pulse Rate 78 79 Respiratory Rate 21 23 Blood Pressure 139/84 Pulse Oximetry 97 97 Oxygen Delivery Method 07/08/24 22:15 07/08/24 22:15 07/08/24 22:30 Temperature Pulse Rate 79 Respiratory Rate 22 Blood Pressure 145/75 H 149/75 H Pulse Oximetry Oxygen Delivery Method 07/08/24 22:30 07/08/24 22:45 07/08/24 22:45 Temperature Pulse Rate 78 101 H Respiratory Rate 23 32 H Blood Pressure 134/71 Pulse Oximetry 96 Oxygen Delivery Method Room Air 07/08/24 23:00 07/08/24 23:00 07/08/24 23:15 Temperature Pulse Rate 77 Respiratory Rate 21 Blood Pressure 149/74 H 154/73 H Pulse Oximetry 97 Oxygen Delivery Method Room Air 07/08/24 23:15 07/08/24 23:30 07/08/24 23:30 Temperature Pulse Rate 76 76 Respiratory Rate 21 18 Blood Pressure 150/70 H Pulse Oximetry 97 97 Oxygen Delivery Method Room Air Room Air 07/08/24 23:45 07/08/24 23:45 07/09/24 00:00 Temperature Pulse Rate 75 Respiratory Rate 18 Blood Pressure 145/69 H 141/68 H Pulse Oximetry 97 Oxygen Delivery Method 07/09/24 00:00 07/09/24 00:15 07/09/24 00:15 Temperature Pulse Rate 76 72 Respiratory Rate 17 14 Blood Pressure 132/60 Pulse Oximetry 97 97 Oxygen Delivery Method 07/09/24 00:30 07/09/24 00:30 07/09/24 00:45 Temperature Pulse Rate 70 Respiratory Rate 13 Blood Pressure 132/68 119/61 Pulse Oximetry 97 Oxygen Delivery Method 07/09/24 00:45 07/09/24 01:00 07/09/24 01:00 Temperature Pulse Rate 69 69 Respiratory Rate 14 14 Blood Pressure 115/59 L Pulse Oximetry 97 97 Oxygen Delivery Method MDM - Weakness Differential Diagnosis Differential diagnosis: Likely other (ACS, pneumonia, electrolyte abnormality) Lab Data 07/09/24 00:48 Labs: Lab Results 07/08/24 07/08/24 07/08/24 Range/Units 18:45 19:30 19:45 PT 15.5 H (9.4-12.5) SECONDS INR 1.4 H (0.9-1.3) APTT 32 (25.1-36.5) SECONDS Sodium 99 L* (137-145) mmol/L Potassium 3.8 (3.4-5.1) mmol/L Chloride 68 L* (98-107) mmol/L Carbon Dioxide 21 L (22-32) mmol/L BUN 11 (9-20) mg/dL Creatinine 0.40 L (0.66-1.25) mg/dL Estimated GFR > 60 (>60) mL/min BUN/Creatinine Ratio 27.5 H (6-22) Glucose 91 (80-110) mg/dL Lactate 1.4 (0.7-2.1) mmol/L Calcium 8.5 (8.4-10.2) mg/dL Magnesium 1.4 L (1.6-2.3) mg/dL Total Bilirubin 0.8 (0.2-1.3) mg/dL AST 32 (17-59) IU/L ALT 26 (<50) IU/L Alkaline Phosphatase 81 (38-126) U/L Total Creatine Kinase 90 (55-170) U/L Troponin I < 0.012 (0.01-0.034) ng/mL NT-Pro-B Natriuret Pep 3300 H (<125) pg/mL Total Protein 6.5 (6.3-8.2) g/dL Albumin 3.4 L (3.5-5.0) g/dL Globulin 3.1 (1.7-4.1) g/dL Albumin/Globulin Ratio 1.1 (1.0-2.8) Lipase 23 (23-300) U/L Urine RBC (0-5/HPF) Urine WBC (0-5/HPF) Ur Squamous Epith Cells (0-5/HPF) Urine Bacteria (None) Ur Culture Indicated? Vol Urine Centrifuged Ur Random Sodium (30-90) mmol/L SARS-CoV-2 (PCR) Negative (Negative) Influenza A (RT-PCR) Flu a negative (NEGATIVE) Influenza B (RT-PCR) Flu b negative (NEGATIVE) RSV (PCR) Negative (Negative) 07/08/24 07/08/24 07/08/24 Range/Units 20:47 22:15 22:25 PT (9.4-12.5) SECONDS INR (0.9-1.3) APTT (25.1-36.5) SECONDS Sodium 98 L* 101 L* (137-145) mmol/L Potassium 3.7 3.7 (3.4-5.1) mmol/L Chloride 67 L* 69 L* (98-107) mmol/L Carbon Dioxide 23 23 (22-32) mmol/L BUN 11 11 (9-20) mg/dL Creatinine 0.37 L 0.33 L (0.66-1.25) mg/dL Estimated GFR > 60 > 60 (>60) mL/min BUN/Creatinine Ratio 29.7 H 33.3 H (6-22) Glucose 88 79 L (80-110) mg/dL Lactate (0.7-2.1) mmol/L Calcium 8.1 L 8.4 (8.4-10.2) mg/dL Magnesium (1.6-2.3) mg/dL Total Bilirubin (0.2-1.3) mg/dL AST (17-59) IU/L ALT (<50) IU/L Alkaline Phosphatase (38-126) U/L Total Creatine Kinase (55-170) U/L Troponin I (0.01-0.034) ng/mL NT-Pro-B Natriuret Pep (<125) pg/mL Total Protein (6.3-8.2) g/dL Albumin (3.5-5.0) g/dL Globulin (1.7-4.1) g/dL Albumin/Globulin Ratio (1.0-2.8) Lipase (23-300) U/L Urine RBC None seen (0-5/HPF) Urine WBC None seen (0-5/HPF) Ur Squamous Epith Cells 0-1 /hpf (0-5/HPF) Urine Bacteria None seen (None) Ur Culture Indicated? Cult not indicated Vol Urine Centrifuged 10ml (spun) Ur Random Sodium 6 L (30-90) mmol/L SARS-CoV-2 (PCR) (Negative) Influenza A (RT-PCR) (NEGATIVE) Influenza B (RT-PCR) (NEGATIVE) RSV (PCR) (Negative) 07/09/24 Range/Units 00:48 PT (9.4-12.5) SECONDS INR (0.9-1.3) APTT (25.1-36.5) SECONDS Sodium 100 L* (137-145) mmol/L Potassium 3.5 (3.4-5.1) mmol/L Chloride 71 L* (98-107) mmol/L Carbon Dioxide 20 L (22-32) mmol/L BUN 11 (9-20) mg/dL Creatinine 0.35 L (0.66-1.25) mg/dL Estimated GFR > 60 (>60) mL/min BUN/Creatinine Ratio 31.4 H (6-22) Glucose 74 L (80-110) mg/dL Lactate (0.7-2.1) mmol/L Calcium 8.1 L (8.4-10.2) mg/dL Magnesium (1.6-2.3) mg/dL Total Bilirubin (0.2-1.3) mg/dL AST (17-59) IU/L ALT (<50) IU/L Alkaline Phosphatase (38-126) U/L Total Creatine Kinase (55-170) U/L Troponin I (0.01-0.034) ng/mL NT-Pro-B Natriuret Pep (<125) pg/mL Total Protein (6.3-8.2) g/dL Albumin (3.5-5.0) g/dL Globulin (1.7-4.1) g/dL Albumin/Globulin Ratio (1.0-2.8) Lipase (23-300) U/L Urine RBC (0-5/HPF) Urine WBC (0-5/HPF) Ur Squamous Epith Cells (0-5/HPF) Urine Bacteria (None) Ur Culture Indicated? Vol Urine Centrifuged Ur Random Sodium (30-90) mmol/L SARS-CoV-2 (PCR) (Negative) Influenza A (RT-PCR) (NEGATIVE) Influenza B (RT-PCR) (NEGATIVE) RSV (PCR) (Negative) Urine Dip Bedside Urine Glucose Negative Bedside Urine Bilirubin ++ 2 Bedside Urine Ketone - Negative Urine Specific [place] 1.015 Bedside Urine Occult Blood - Negative Bedside Urine pH 6 Bedside Urine Protein + 30 Bedside Urine Urobilinogen - Negative Bedside Urine Nitrite - Negative Bedside Urine Leukocytes - Negative Esterase Imaging Data CT scan - head: Radiologist Impression: [address] [address] [address] Scan Report Signed Patient: Chuy Winston MR#: [id number] : 1955 Acct:[id number] Age/Sex: 68 / M Date of Service: 07/08/24 Loc: ED Accession Number: [id number] Procedure: CT head/brain wo con Ordering Provider: Gil Longoria D.O. PROCEDURE: CT HEAD/BRAIN WO CON INDICATIONS: weakness TECHNIQUE: Noncontrast 4.5 mm thick angled axial sections acquired from the foramen magnum to the vertex, with coronal and sagittal reformats. For radiation dose reduction, the following was used: automated exposure control, adjustment of mA and/or kV according to patient size. COMPARISON: None. FINDINGS: Image quality: Diagnostic. CSF spaces: Basal cisterns are patent. No extra-axial fluid collections. The ventricles are symmetric in size and shape. Brain: No intracranial bleeds or masses. There is cerebral volume loss for age, with resultant ventricular and sulcal prominence. There are periventricular and deep white matter chronic small vessel ischemic changes. There is intracranial internal carotid artery atherosclerosis. Skull and face: Calvarium and visualized facial bones appear intact, without suspicious lesions. Sinuses: Visualized sinuses and mastoids are clear. IMPRESSION: No acute intracranial pathology. CT soft tissue neck: Radiologist Impression: [address] [address] [address] Scan Report Signed Patient: Chuy Winston MR#: [id number] : 1955 Acct:[id number] Age/Sex: 68 / M Date of Service: 07/08/24 Loc: ED Accession Number: [id number] Procedure: CT soft tissue neck w con Ordering Provider: Gil Longoria D.O. PROCEDURE: CT SOFT TISSUE NECK W CON INDICATIONS: left sided neck mass TECHNIQUE: After the administration of intravenous contrast, 3.0 mm axial sections acquired from the sella to the aortic arch. Additional oblique axial 3.0 mm sections acquired through the pharynx. 3 mm thick coronal and sagittal reformats were generated. For radiation dose reduction, the following was used: automated exposure control. COMPARISON: [facility], CT, CT SOFT TISSUE NECK WITH CONTRAST, 02/16/2024, 10:43. [facility], [place], PET NECK TO MID THIGH, 03/25/2024, 9:28. [facility], CT, CT SOFT TISSUE NECK W CON, 10/11/2022, 10:40. FINDINGS: Image quality: Excellent. Lymph nodes: No enlarged lymph nodes seen throughout the neck. Vessels: Visualized vasculature appears patent. Right-sided Port-A-Cath. Neck spaces: Redemonstration of large ulcerative mass within the left neck which appears to have increased in size compared to prior with interval opening and ulcer formation. Again seen effacement of the fascial planes and invasion of the sternocleidomastoid muscle. The oropharynx, nasopharynx, and pharynx demonstrate no mucosal lesions. The vocal cords, false vocal cords, pyriform sinuses, epiglottis, vallecula, and tongue base all appear normal. Glands: The parotid and submandibular glands appear normal. Thyroid gland demonstrates no significant abnormality. Miscellaneous: Visualized brain and orbits appear normal. Small left pleural effusion with adjacent consolidative opacity in the left lower lobe. Additional ground- glass and small consolidative opacities within the visualized right lower lobe and posterior upper lobes. Superficial soft tissues appear normal. Bones: No suspicious bony lesions. Degenerative changes of the spine. Visualized sinuses and mastoids appear unremarkable. IMPRESSION: Large left neck mass has increased in size compared to prior with interval large ulcer formation. Recommend correlation with physical exam. Interval element of small left pleural effusion. Patchy ground-glass consolidative opacities within the visualized lung garcia, most pronounced within the left lower lobe which is only partially visualized. Findings are concerning for pneumonia. Metastatic disease is also in the differential and follow-up imaging is recommended. ECG Data Interpretation: EKG interpreted ED physician sinus 77 beats per minute QTC 441, normal axis nonspecific ST changes no STEMI MDM Narrative Medical decision making narrative: 68-year-old man with a history of invasive neck carcinoma comes into the ED via EMS from home for evaluation of shortness of breath as well as generalized weakness causing recurrent falls, states he is normally able to stand bear weight ambulate however he states he has been too weak and has caused him to slip out of his bed and unable to get up. Patient states that he did see his oncologist who is at [facility] recently for his invasive neck tumor was started on ciprofloxacin has been taking this for the past few days, however he is weaker and having shortness of breath therefore decided come in. CT scan of the head without any acute findings CT soft tissue neck showing pneumonia as well as known invasive carcinoma of the left neck. Patient's chemistry panel with significant electrolyte derangement sodium 98, and hypochloremia of 67. Patient was started on vanc and Zosyn for his pneumonia 2033: Had a lengthy discussion with exploration manager Dr. Herbert, who states patient should have a 50 cc bolus of hypertonic saline over 5-10 minutes, followed by 30 cc/hour for the next 2 hours. States that once that has ran would recommend an additional 20 cc an hour for the next 13 hours of hypertonic saline. States to recheck sodium every 2 hours for 2 times as long as sodium up trending would then recommend every 4 hours. States that patient does need transfer and admission to an ICU with Nephrology. 0019 (2.7.25): Had discussion with ICU doctor Dr. kincaid at [facility], accepts the patient patient for ICU transfer, awaiting call back for bed availability/placement. 0130: Patient accepted has bed and transport will arrive shortly. Patient's repeat BMP showing down trend of sodium to [address] Herbert, is recommending to increase patient's hypertonic back to 30 cc an hour for the next 2 hours Discharge Plan Departure Patient Disposition: [facility] Clinical Impression: Acute hyponatremia, Pneumonia, Hyperchloremia Prescriptions: No Action acetaminophen [Tylenol] 325 mg capsule 650 mg PO QID PRN (Reason: pain) Qty: 60 0RF multivitamin Tablet 1 tab PO DAILY ascorbic acid (vitamin C) 1,000 mg Capsule, Extended Release 3,000 cap PO DAILY cholecalciferol (vitamin D3) [Vitamin D3] 25 mcg (1,000 unit) Tablet 25 mcg PO DAILY Ca-D3-mag vo-ocrx-hna-curt-bor [Calcium 600-D3 Plus (mag-zinc)] 600 mg calcium- 20 mcg-50 mg Tablet 1 tab PO DAILY Tylenol PM 25 MG tablet See Rx Instructions .ROUTE .COMPLEX Rx Instructions: TAKE NEEDED FOR PAIN AND SLEEP oxycodone 10 mg Tablet 10 mg PO Q4H PRN (Reason: cancer related pain.) Qty: 90 0RF Referrals: iLsbet Medina PA-C [Primary Care Provider] -
--- NOTE | 2024-07-08 20:07 | DI.CT.S_ITS ---
PROCEDURE: CT HEAD/BRAIN WO CON INDICATIONS: weakness TECHNIQUE: Noncontrast 4.5 mm thick angled axial sections acquired from the foramen magnum to the vertex, with coronal and sagittal reformats. For radiation dose reduction, the following was used: automated exposure control, adjustment of mA and/or kV according to patient size. COMPARISON: None. FINDINGS: Image quality: Diagnostic. CSF spaces: Basal cisterns are patent. No extra-axial fluid collections. The ventricles are symmetric in size and shape. Brain: No intracranial bleeds or masses. There is cerebral volume loss for age, with resultant ventricular and sulcal prominence. There are periventricular and deep white matter chronic small vessel ischemic changes. There is intracranial internal carotid artery atherosclerosis. Skull and face: Calvarium and visualized facial bones appear intact, without suspicious lesions. Sinuses: Visualized sinuses and mastoids are clear. IMPRESSION: No acute intracranial pathology. If there is concern for acute infarct or metastatic disease, consider MRI for further evaluation. Dictated by: Fabrizio Molina M.D. on 07/08/2024 at 21:07 Approved by: Fabrizio Molina M.D. on 07/08/2024 at 21:09
--- NOTE | 2024-07-08 20:08 | DI.CT.S_ITS ---
PROCEDURE: CT SOFT TISSUE NECK W CON INDICATIONS: left sided neck mass TECHNIQUE: After the administration of intravenous contrast, 3.0 mm axial sections acquired from the sella to the aortic arch. Additional oblique axial 3.0 mm sections acquired through the pharynx. 3 mm thick coronal and sagittal reformats were generated. For radiation dose reduction, the following was used: automated exposure control. COMPARISON: [facility], CT, CT SOFT TISSUE NECK WITH CONTRAST, 02/16/2024, 10:43. [facility], [place], PET NECK TO MID THIGH, 03/25/2024, 9:28. [facility], CT, CT SOFT TISSUE NECK W CON, 10/11/2022, 10:40. FINDINGS: Image quality: Excellent. Lymph nodes: No enlarged lymph nodes seen throughout the neck. Vessels: Visualized vasculature appears patent. Right-sided Port-A-Cath. Neck spaces: Redemonstration of large ulcerative mass within the left neck which appears to have increased in size compared to prior with interval opening and ulcer formation. Again seen effacement of the fascial planes and invasion of the sternocleidomastoid muscle. The oropharynx, nasopharynx, and pharynx demonstrate no mucosal lesions. The vocal cords, false vocal cords, pyriform sinuses, epiglottis, vallecula, and tongue base all appear normal. Glands: The parotid and submandibular glands appear normal. Thyroid gland demonstrates no significant abnormality. Miscellaneous: Visualized brain and orbits appear normal. Small left pleural effusion with adjacent consolidative opacity in the left lower lobe. Additional ground-glass and small consolidative opacities within the visualized right lower lobe and posterior upper lobes. Superficial soft tissues appear normal. Bones: No suspicious bony lesions. Degenerative changes of the spine. Visualized sinuses and mastoids appear unremarkable. IMPRESSION: Large left neck mass has increased in size compared to prior with interval large ulcer formation. Recommend correlation with physical exam. Interval element of small left pleural effusion. Patchy ground-glass consolidative opacities within the visualized lung garcia, most pronounced within the left lower lobe which is only partially visualized. Findings are concerning for pneumonia. Metastatic disease is also in the differential and follow-up imaging is recommended. Dictated by: Fabrizio Molina M.D. on 07/08/2024 at 21:09 Approved by: Fabrizio Molina M.D. on 07/08/2024 at 21:17
[2024-07-08 20:12] LABS: Alanine Aminotransferase 26 IU/L (<50); Albumin 3.4 g/dL (3.5-5.0); Albumin Globulin Ratio 1.1 (1.0-2.8); Alkaline Phosphatase 81 U/L (38-126); Aspartate Aminotransferase 32 IU/L (17-59); BUN Creatinine Ratio 27.5 (6-22); Bilirubin Total 0.8 mg/dL (0.2-1.3); Blood Urea Nitrogen 11 mg/dL (9-20); Calcium 8.5 mg/dL (8.4-10.2); Carbon Dioxide 21 mmol/L (22-32); Estimated Glomerular Filt Rate > 60 mL/min (>60); Globulin 3.1 g/dL (1.7-4.1); Glucose 91 mg/dL (80-110); HEMOLYSIS < 15 (0-50); Lipase 23 U/L (23-300); Magnesium 1.4 mg/dL (1.6-2.3); Potassium 3.8 mmol/L (3.4-5.1); Total Protein 6.5 g/dL (6.3-8.2)
[2024-07-08 20:13] LABS: INR 1.4 (0.9-1.3); Prothrombin Time 15.5 SECONDS (9.4-12.5)
[2024-07-08 20:15] LABS: PTT Partial Thromboplastin Tim 32 SECONDS (25.1-36.5)
[2024-07-08 20:21] LABS: Influenza A - CEPHEID Flu A NEGATIVE (NEGATIVE); Influenza B - CEPHEID Flu B NEGATIVE (NEGATIVE); Respiratory Syncytial Virus Negative (Negative)
[2024-07-08 20:22] LABS: Chloride 68 mmol/L (98-107); Sodium 99 mmol/L (137-145)
[2024-07-08 20:24] LABS: NT-proBNP (BNP-Adult 18+) 3300 pg/mL (<125)
[2024-07-08 20:28] LABS: COVID-19 CEPHEID 4-PLEX PCR Negative (Negative)
[2024-07-08] MEDS: SODIUM CHLORIDE 3 % 50 ML 600 ML IV (20:47)
[2024-07-08] MEDS: SODIUM CHLORIDE 3 % 100 ML 30 ML IV (20:48)
[2024-07-08 21:08] LABS: BUN Creatinine Ratio 29.7 (6-22); Blood Urea Nitrogen 11 mg/dL (9-20); Calcium 8.1 mg/dL (8.4-10.2); Carbon Dioxide 23 mmol/L (22-32); Estimated Glomerular Filt Rate > 60 mL/min (>60); Glucose 88 mg/dL (80-110); HEMOLYSIS < 15 (0-50); Potassium 3.7 mmol/L (3.4-5.1)
[2024-07-08 21:13] LABS: Chloride 67 mmol/L (98-107); Sodium 98 mmol/L (137-145)
[2024-07-08] MEDS: SODIUM CHLORIDE 3 % 100 ML 20 ML IV (22:40)
[2024-07-08 22:43] LABS: BUN Creatinine Ratio 33.3 (6-22); Blood Urea Nitrogen 11 mg/dL (9-20); Calcium 8.4 mg/dL (8.4-10.2); Carbon Dioxide 23 mmol/L (22-32); Estimated Glomerular Filt Rate > 60 mL/min (>60); Glucose 79 mg/dL (80-110); HEMOLYSIS < 15 (0-50); Potassium 3.7 mmol/L (3.4-5.1)
[2024-07-08 22:54] LABS: Sodium Urine Random 6 mmol/L (30-90)
[2024-07-08 22:56] LABS: Chloride 69 mmol/L (98-107); Sodium 101 mmol/L (137-145)
[2024-07-08] MEDS: PIPERACILLIN/TAZO 4.5 GM in SODIUM CHLORIDE 0.9% 100 ML IV (23:23)
[2024-07-08 23:37] LABS: Bacteria Urine None Seen; Culture Indicated Urine Cult Not Indicated; RBC Urine None Seen (0-5/HPF); Squamous Epithelial Cell Urine 0-1 /HPF (0-5/HPF); Urine Volume 10mL (spun); WBC Urine None Seen (0-5/HPF)
[2024-07-08] MEDS: MORPHINE 4 MG/ML INJ IV (23:49)
[2024-07-08] MEDS: VANCOMYCIN 2,000 MG/400 ML PIGGYBACK 200 MG IV (23:52)
[2024-07-09] VITALS (9 sets, daily range): BP systolic 108–151; BP diastolic 58–75; PULSE 68–78; RESP 13–24; O2SAT 97
--- NOTE | 2024-07-09 00:51 | PC.NURSE ---
Repeat labs drawn from existing IV right lower forearm without complications.
[2024-07-09 01:17] LABS: BUN Creatinine Ratio 31.4 (6-22); Blood Urea Nitrogen 11 mg/dL (9-20); Calcium 8.1 mg/dL (8.4-10.2); Carbon Dioxide 20 mmol/L (22-32); Estimated Glomerular Filt Rate > 60 mL/min (>60); Glucose 74 mg/dL (80-110); HEMOLYSIS < 15 (0-50); Potassium 3.5 mmol/L (3.4-5.1)
[2024-07-09 01:21] LABS: Chloride 71 mmol/L (98-107); Sodium 100 mmol/L (137-145)
[2024-07-09] MEDS: SODIUM CHLORIDE 3 % 100 ML 30 ML IV (01:39)
--- NOTE | 2024-07-09 01:44 | PC.NURSE ---
APPLE PEELER OPERATOR note: Attempting to transfer the patient. Spoke to the following facilities. [facility]:[id number] on 07/08/24, spoke with Daisy. They are currently boarding. Patient is on their waitlist. /[facility]: 5 Spoke with Hal. Currently boarding, patient on their waitlist. [facility]: 2225 spoke w/ Michel. They had no bed and were boarding, had no waitlist. [facility]: 2241 Spoke w/ Ramonita. Accepted at 0025, bed assigned [id number].
--- NOTE | 2024-07-09 09:50 | PC.NURSE ---
[facility] called for report of xray and images. xray aware
[2024-07-09 16:49] LABS: Acinetobacter calcoa-baumannii Not Detected (Not Detect); Bacteroides fragilis Not Detected (Not Detect); CTX-M Resistance Not Detected (Not Detect); Candida albicans Not Detected (Not Detect); Candida auris Not Detected (Not Detect); Candida glabrata Not Detected (Not Detect); Candida krusei Not Detected (Not Detect); Candida parapsilosis Not Detected (Not Detect); Candida tropicalis Not Detected (Not Detect); Cryptococcus neoformans/gatti Not Detected (Not Detect); Enterobacter cloacae complex Not Detected (Not Detect); Enterobacterales Not Detected (Not Detect); Enterococcus faecalis Not Detected (Not Detect); Enterococcus faecium Not Detected (Not Detect); Haemophilus influenzae Not Detected (Not Detect); IMP Resistance Not Detected (Not Detect); KPC Resistance Not Detected (Not Detect); Klebsiella aerogenes Not Detected (Not Detect); Listeria monocytogenes Not Detected (Not Detect); NDM Resistance Not Detected (Not Detect); Neisseria meningitidis Not Detected (Not Detect); Proteus species Not Detected (Not Detect); Pseudomonas aeruginosa Detected (Not Detect); Salmonella species Not Detected (Not Detect); Serratia marcescens Not Detected (Not Detect); Staphylococcus epidermidis Not Detected (Not Detect); Staphylococcus lugdunensis Not Detected (Not Detect); Staphylococcus species Not Detected (Not Detect); Stenotrophomonas maltophilia Not Detected (Not Detect); Streptococcus agalactiae (Gr B Not Detected (Not Detect); Streptococcus pneumonia Not Detected (Not Detect); Streptococcus pyogenes (Gr A) Not Detected (Not Detect); Streptococcus species Not Detected (Not Detect); VIM Resistance Not Detected (Not Detect)
[2024-07-12 19:36] LABS: Osmolality Urine 743 mOsmol/kg (.)
[2024-07-13 14:10] LABS: Osmolality, Serum 208 mOsmol/kg (280-301)
== END 2024-07-09 02:19 | disposition short-term general hospital (02) ==
PROVIDERS: Emergency Provider Student in an Organized Health Care Education/Training Program; PCP Physician Assistant
DX: E87.1 Hypo-osmolality and hyponatremia (principal); J18.9 Pneumonia, unspecified organism; E87.8 Other disorders of electrolyte and fluid balance, not elsewhere classified; C44.42 Squamous cell carcinoma of skin of scalp and neck; C79.9 Secondary malignant neoplasm of unspecified site; R29.6 Repeated falls; Z95.828 Presence of other vascular implants and grafts; Z87.891 Personal history of nicotine dependence
CPT/HCPCS: 0241U; 36415; 70450; 70491; 71045; 80048; 80053; 81003; 81015; 82550; 83605; 83690; 83735; 83880; 83930; 83935; 84300; 84484; 85610; 85730; 87040; 87070; 87075; 87077; 87154; 87186; 87205; 93005; 96361; 96365; 96366; 96367; 96375; 99284; 99285; J2270; J2543; Q9967